=== PATIENT | female | born 1980 | race Caucasian/White ===

== ENCOUNTER 2016-09-27 12:55 | Emergency (ER) | payer SELFPAY ==
[~2016-09-27] VITALS: Ht 157.5 cm; Wt 75.0 kg
[~2016-09-27 12:55] MED LIST: BUSP15TA PO; FLUO40CA PO; PROZ40CA PO
[2016-09-27 12:59] VITALS: BP 119/80; PULSE 78; RESP 16; TEMP 97.7; O2SAT 99
--- NOTE | 2016-09-27 13:34 | PD ---
HPI Chief Complaint: Cold / Flu Symptoms Time Seen by Provider: 13:17 Travel History International Travel<30 days: No Contact w/Intl Traveler<30days: No Traveled to known affect area: No History of Present Illness HPI Patient is a 36-year-old female who comes in complaining of multiple symptoms. She says she's been feeling sick on and off for the past 2 weeks. She says she' s had nausea on and off, mostly in the morning. She reports vomiting this morning. She has drunk water since then without a problem. She says she's had occasional diarrhea. She says the past few days she also started to have runny nose and cough. She says she's felt feverish, but has not taken her temperature. She says her boyfriend is concerned she may be . She says she also came in because she's had to miss work and needs evidence that she has been sick. She lives in a sober living house, and reports a multiple residents are sick with similar symptoms. She is a former IV drug abuser, and says she recently had an HIV test done that was negative. She denies any abdominal pain. PFSH Past Medical History Arthritis: No Asthma: No Autoimmune Disease: No Blood Disorders: No Bipolar Disorder: Yes Anxiety: Yes Depression: Yes Heart Rhythm Problems: No Cancer: No Cardiovascular Problems: Yes High Cholesterol: No Chemotherapy: No Chest Pain: Yes Congestive Heart Failure: No COPD: No Cerebrovascular Accident: No Diabetes: No Diminished Hearing: No Endocrine: No Gastrointestinal Disorders: Yes GERD: No Glaucoma: No Genitourinary: No Headaches: Yes Hepatitis: No Hiatal Hernia: No Heparin Induced Thrombocytopen: No Hypertension: Yes Immune Disorder: No Implanted Vascular Access Dvce: No Kidney Stones: No Musculoskeletal: No Neurologic: Yes (NEUROMAS BILAT FEET) Psychiatric: Yes Reproductive: No Respiratory: No Migraines: No Myocardial Infarction: No Radiation Therapy: No Renal Failure: No Seizures: Yes (As per patient self report) Sickle Cell Disease: No Sleep Apnea: No Thyroid Disease: No Ulcer: No ?: Not LMP: 09/07/16 : 5 Para: 2 Miscarriage: 2 : 1 Ectopic : Yes Past Surgical History Abdominal Surgery: No AICD: No Appendectomy: No Arteriovenous Shunt: No Cardiac Surgery: No Section: Yes (X1) Cholecystectomy: No Ear Surgery: No Endocrine Surgery: No Eye Surgery: No Genitourinary Surgery: No Gynecologic Surgery: Yes (CEASARIAN X1) Insulin Pump: No Joint Replacement: No Oral Surgery: Yes Pacemaker: No Thoracic Surgery: No Other Surgery: Yes Social History Tobacco Use: Yes (1/2 PACK/DAY) Substance Use: Yes Allergies-Medications (Allergen,Severity, Reaction): Coded Allergies: Penicillin (Verified Allergy, Severe, HIVES, 09/27/16) Tylox (Verified Adverse Reaction, Severe, HALLUCINATIONS, 09/27/16) Uncoded Allergies: NO NARCOTICS (Adverse Reaction, Unknown, 09/27/16) IN RECOVERY Reported Meds & Prescriptions Reported Meds & Active Scripts Active Review of Systems General / Constitutional: Positive: Fever, No: Chills HENT: No: Headaches, Lightheadedness Cardiovascular: No: Chest Pain or Discomfort Respiratory: Positive: Cough, No: Shortness of Breath Gastrointestinal: Positive: Nausea, Vomiting, Diarrhea, No: Abdominal Pain Genitourinary: No: Dysuria Skin: No Rash, No Change in Pigmentation Neurologic: No: Weakness, Dizziness Physical Exam Narrative GENERAL: Awake and alert, in no acute distress. SKIN: Warm and dry. HEAD: Atraumatic. Normocephalic. EYES: Pupils equal and round. No scleral icterus. ENT: Mucous membranes pink and moist. No pharyngeal erythema, no tonsillar swelling or exudates. CARDIOVASCULAR: Regular rate and rhythm. No murmur appreciated. RESPIRATORY: No accessory muscle use. Clear to auscultation. Breath sounds equal bilaterally. GASTROINTESTINAL: Abdomen soft, non-tender, nondistended. Hepatic and splenic margins not palpable. MUSCULOSKELETAL: No obvious deformities. No clubbing. No cyanosis. No edema. Data Data Last Documented VS Vital Signs Date Time Temp Pulse Resp B/P Pulse Ox O2 Delivery O2 Flow Rate FiO2 09/27/16 12:59 97.7 78 16 119/80 99 Orders Ed Urine Pregnancytest Poc (09/27/16 13:27) MDM Medical Decision Making Medical Screen Exam Complete: Yes Emergency Medical Condition: Yes Medical Record Reviewed: Yes Differential Diagnosis URI versus viral illness versus pneumonia versus bronchitis Narrative Course Patient is a 36-year-old female who comes in with multiple medical complaints. Exam shows no acute abnormalities. Patient offered chest x-ray, however she declines at this time. Offered medications, however she says she is feeling okay, just run down. She says she needs a note for work so she can get some rest. Urine test performed, is negative. Patient advised to continue to use Tylenol or ibuprofen as needed. Advised to drink plenty of fluids. Advised to return to the ED as needed for any worsening symptoms. Diagnosis Primary Impression: Viral illness Patient Instructions: General Instructions, Viral Syndrome (ED) Additional Instructions: Drink plenty of fluids. Take Tylenol or Ibuprofen as needed for pain or fever. Return to the ED as needed for any worsening symptoms. Disposition: 01 DISCHARGE HOME Condition: Stable Yael Alarcon MD Sep 27, 2016 13:33
== END 2016-09-27 13:48 | disposition home or self-care (01) ==
LOC: PHED 12:55
DX: B34.9 Viral infection, unspecified (principal); R05 Cough; R19.7 Diarrhea, unspecified; I10 Essential (primary) hypertension; F17.210 Nicotine dependence, cigarettes, uncomplicated
CPT/HCPCS: 84703; 99283

== ENCOUNTER 2016-11-12 22:32 | Inpatient (IN) | payer SELFPAY ==
[~2016-11-12] VITALS: Ht 157.5 cm; Wt 75.0 kg
[~2016-11-12 22:32] MED LIST changes: -BUSP15TA PO; -FLUO40CA PO
[2016-11-12] MEDS ORDERED: SODIUM CHLOR 0.9% 1000 ML INJ 1,000 ML IV ONE (22:37)
[2016-11-12 22:38] VITALS: BP 216/139; PULSE 90; RESP 38; TEMP 98.5; O2SAT 91
[2016-11-12] MEDS ORDERED: SODIUM CHLORIDE 0.9% FLUSH 10 ML FLUSH IVF PRN (22:45)
[2016-11-12] MEDS ORDERED: LORazepam 2 MG/ML VIAL IV ONE (22:45)
--- NOTE | 2016-11-12 22:49 | PD ---
HPI Chief Complaint: Alcohol/Drug Intoxication Time Seen by Provider: 22:37 Travel History International Travel<30 days: No Contact w/Intl Traveler<30days: No Traveled to known affect area: No History of Present Illness HPI 36-year-old female here for intoxication. Patient states that she is been using crack cocaine today and "can't shut it down". Patient apparently has been fidgeting throughout the day, not sleeping and friend was worried about her and called EMS. Patient noted to be restless, agitated area admits to using crack cocaine. Patient denies any complaints but states that she can't sleep and wants to be able to do so. Per EMS patient restless, hemodynamically stable. Patient also notes a history of bipolar disorder and has been noncompliant with meds for some time. PFSH Past Medical History Arthritis: No Asthma: No Autoimmune Disease: No Blood Disorders: No Bipolar Disorder: Yes Anxiety: Yes Depression: Yes Heart Rhythm Problems: No Cancer: No Cardiovascular Problems: Yes High Cholesterol: No Chemotherapy: No Chest Pain: Yes Congestive Heart Failure: No COPD: No Cerebrovascular Accident: No Diabetes: No Diminished Hearing: No Endocrine: No Gastrointestinal Disorders: Yes GERD: No Glaucoma: No Genitourinary: No Headaches: Yes Hepatitis: No Hiatal Hernia: No Heparin Induced Thrombocytopen: No Hypertension: Yes Immune Disorder: No Implanted Vascular Access Dvce: No Kidney Stones: No Musculoskeletal: No Neurologic: Yes (NEUROMAS BILAT FEET) Psychiatric: Yes Reproductive: No Respiratory: No Migraines: No Myocardial Infarction: No Radiation Therapy: No Renal Failure: No Seizures: Yes (As per patient self report) Sickle Cell Disease: No Sleep Apnea: No Thyroid Disease: No Ulcer: No : 5 Para: 2 Miscarriage: 2 : 1 Ectopic : Yes Past Surgical History Abdominal Surgery: No AICD: No Appendectomy: No Arteriovenous Shunt: No Cardiac Surgery: No Section: Yes (X1) Cholecystectomy: No Ear Surgery: No Endocrine Surgery: No Eye Surgery: No Genitourinary Surgery: No Gynecologic Surgery: Yes (CEASARIAN X1) Insulin Pump: No Joint Replacement: No Oral Surgery: Yes Pacemaker: No Thoracic Surgery: No Other Surgery: Yes Social History Tobacco Use: Yes (1/2 PACK/DAY) Substance Use: Yes Allergies-Medications (Allergen,Severity, Reaction): Coded Allergies: Penicillin (Verified Allergy, Severe, HIVES, 4/1/17) Tylox (Verified Adverse Reaction, Severe, HALLUCINATIONS, 11/12/16) Uncoded Allergies: NO NARCOTICS (Adverse Reaction, Unknown, 09/27/16) IN RECOVERY Reported Meds & Prescriptions Reported Meds & Active Scripts Active Review of Systems ROS Limitations: Intoxication, Poor Historian Except as stated in HPI: all other systems reviewed are Neg Physical Exam Exam Limitations: Intoxication, Poor Historian Narrative GENERAL: Disheveled adult female restless, fidgeting and slightly agitated SKIN: Various excoriations HEAD: Normocephalic. EYES: Pupils equal and round. 5 mm. No scleral icterus. No injection or drainage. ENT: No nasal bleeding or discharge. Mucous membranes pink and moist. NECK: Supple CARDIOVASCULAR: Regular rate and rhythm. No murmur appreciated. RESPIRATORY: No accessory muscle use. Clear to auscultation. Breath sounds equal bilaterally. GASTROINTESTINAL: Abdomen soft, non-tender, nondistended. MUSCULOSKELETAL: Moves all extremities equally and strong NEUROLOGICAL: Awake and alert. Restless, fidgeting and slightly agitated. No obvious cranial nerve deficits. Motor grossly within normal limits. Speech is slightly pressured. No clonus or rigidity PSYCHIATRIC: Poor insight and judgment Data Data Last Documented VS Vital Signs Date Time Temp Pulse Resp B/P Pulse Ox O2 Delivery O2 Flow Rate FiO2 11/13/16 00:07 108 16 140/60 100 Nasal Cannula 2 11/12/16 22:38 98.5 Orders Electrocardiogram (11/12/16 22:37) Basic Metabolic Panel (Bmp) (11/12/16 22:37) Complete Blood Count With Diff (11/12/16 22:37) Iv Access Insert/Monitor (11/12/16 22:37) Ecg Monitoring (11/12/16 22:37) Oximetry (11/12/16 22:37) Lorazepam Inj (Ativan Inj) (11/12/16 22:45) Sodium Chloride 0.9% Flush (Ns Flush) (11/12/16 22:45) Sodium Chlor 0.9% 1000 Ml Inj (Ns 1000 M (11/12/16 22:37) Alcohol (Ethanol) (11/12/16 22:37) Creatine Kinase (Cpk) (11/12/16 22:37) Lorazepam Inj (Ativan Inj) (11/12/16 23:30) CKMB (11/12/16 22:50) CKMB% (11/12/16 22:50) Sodium Chlor 0.9% 1000 Ml Inj (Ns 1000 M (11/13/16 00:00) Labs Laboratory Tests Test 11/12/16 22:50 White Blood Count 14.8 TH/MM3 Red Blood Count 4.62 MIL/MM3 Hemoglobin 13.7 GM/DL Hematocrit 41.6 % Mean Corpuscular Volume 90.0 FL Mean Corpuscular Hemoglobin 29.5 PG Mean Corpuscular Hemoglobin 32.8 % Concent Red Cell Distribution Width 13.2 % Platelet Count 309 TH/MM3 Mean Platelet Volume 7.8 FL Neutrophils (%) (Auto) 86.2 % Lymphocytes (%) (Auto) 6.5 % Monocytes (%) (Auto) 7.0 % Eosinophils (%) (Auto) 0.2 % Basophils (%) (Auto) 0.1 % Neutrophils # (Auto) 12.8 TH/MM3 Lymphocytes # (Auto) 1.0 TH/MM3 Monocytes # (Auto) 1.0 TH/MM3 Eosinophils # (Auto) 0.0 TH/MM3 Basophils # (Auto) 0.0 TH/MM3 CBC Comment DIFF FINAL Differential Comment Sodium Level 136 MEQ/L Potassium Level 4.1 MEQ/L Chloride Level 100 MEQ/L Carbon Dioxide Level 23.8 MEQ/L Blood Urea Nitrogen 14 MG/DL Creatinine 1.10 MG/DL Random Glucose 91 MG/DL Calcium Level 9.0 MG/DL Anion Gap 12 MEQ/L Estimat Glomerular Filtration 56 ML/MIN Rate Total Creatine Kinase GREATER THAN 20076 U/L Creatine Kinase MB 298.0 NG/ML Creatine Kinase MB % 0.0 % Ethyl Alcohol Level LESS THAN 3 MG/DL [facility] Medical Decision Making Medical Screen Exam Complete: Yes Emergency Medical Condition: Yes Medical Record Reviewed: Yes Differential Diagnosis 36-year-old female here for crack cocaine abuse. Patient's exam is consistent with stimulant, sympathomimetic toxidrome consistent with her stated crack cocaine use. Patient clinically intoxicated at this time and symptomatic from same. Differential includes electrolyte abnormality, rhabdomyolysis, alcohol intoxication. Narrative Course Patient placed on monitor, IV established and blood obtained. Given 2 mg Ativan IV, 1 L normal saline bolus. Patient really had little improvement in her agitation was given a repeat dose of 2 mg Ativan for a total of 4 mg with improvement of her agitation. Twelve-lead EKG showed sinus tachycardia, rate [address] abnormalities, normal intervals. QRS 72, QTC 401. CBC, BMP, blood alcohol level, CPK notable for WBC 14.8 likely stressed margination. CPK greater than 14,000. Patient was given second liter normal saline bolus and will be admitted for rhabdomyolysis. Critical Care Narrative Aggregate critical care time was 40 minutes. Time to perform other separately billable procedures was not included in the critical care time. My time did not include minutes spent treating any other patients simultaneously or on activities that did not directly contribute to the patient's treatment. The services I provided to this patient were to treat and/or prevent clinically significant deterioration that could result in: Agitation, excited delirium, renal dysfunction/failure I provided critical care services requiring my management, as noted below: Chart data review, documentation time, medication orders and management, vital sign assessments/reviewing monitor data, ordering and reviewing lab tests, ordering and interpreting/reviewing x-rays and diagnostic studies, care of the patient and discussion of the patient with the admitting physicians. Diagnosis Primary Impression: Rhabdomyolysis Qualified Code: M62.82 - Non-traumatic rhabdomyolysis Additional Impressions: Crack cocaine overdose Qualified Code: T40.5X1A - Crack cocaine overdose, accidental or unintentional , initial encounter Overdose of sympathomimetic agent Qualified Code: T44.901A - Overdose of sympathomimetic agent, accidental or unintentional, initial encounter Admitting Information Admitting Physician Requests: Admit Lisette Means MD Nov 12, 2016 22:49
[2016-11-12 22:54] VITALS: O2SAT 95
[2016-11-12 23:00] LABS: AUTOMATED NEUTROPHIL # 12.8 TH/MM3 (1.8-7.7); BASOPHIL % 0.1 % (0.0-2.0); EOSINOPHIL % 0.2 % (0.0-4.0); HEMATOCRIT 41.6 % (35.0-46.0); HEMO FLAGS DIFF FINAL; LYMPH % 6.5 % (9.0-44.0); MEAN CORPUSCULAR HEMOGLOBIN 29.5 PG (27.0-34.0); MEAN CORPUSCULAR HGB CONC 32.8 % (32.0-36.0); NEUT % 86.2 % (16.0-70.0); PLATELET COUNT 309 TH/MM3 (150-450); RED BLOOD COUNT 4.62 MIL/MM3 (4.00-5.30); RED CELL DISTRIBUTION WIDTH 13.2 % (11.6-17.2); WHITE BLOOD COUNT 14.8 TH/MM3 (4.0-11.0)
[2016-11-12 23:22] LABS: ANION GAP 12 MEQ/L (5-15); BICARBONATE 23.8 MEQ/L (21.0-32.0); BLOOD UREA NITROGEN 14 MG/DL (7-18); CHLORIDE 100 MEQ/L (98-107); GLOMERULAR FILTRATION RATE 56 ML/MIN (>89); POTASSIUM 4.1 MEQ/L (3.5-5.1); SODIUM (NA) 136 MEQ/L (136-145)
[2016-11-12] MEDS ORDERED: LORazepam 2 MG/ML VIAL IV PUSH ONE (23:30)
[2016-11-12 23:45] LABS: CREATINE KINASE GREATER THAN 14000 U/L (26-192)
[2016-11-13] VITALS (9 sets, daily range): BP systolic 90–140; BP diastolic 49–66; PULSE 72–116; RESP 16–22; TEMP 98.2–100.9; O2SAT 95–100
[2016-11-13] MEDS ORDERED: SODIUM CHLOR 0.9% 1000 ML INJ 1,000 ML IV ONE
[2016-11-13] MEDS ORDERED: ONDANSETRON HCL 4 MG/2 ML VIAL IVP PRN (00:30)
[2016-11-13] MEDS ORDERED: LORazepam 2 MG/ML VIAL IV PUSH PRN (00:30)
[2016-11-13] MEDS ORDERED: SODIUM CHLORIDE 0.9% FLUSH 10 ML FLUSH IV FLUSH PRN (00:30)
[2016-11-13] MEDS: SODIUM CHLOR 0.9% 1000 ML INJ 1,000 ML IV SCH ×4 (01:33→21:44)
--- NOTE | 2016-11-13 03:09 | HHI.HP ---
[facility] Primary Care Physician Unknown Admission Diagnosis rhabdomyolysis, crack cocaine overdose Diagnoses: (1) Crack cocaine overdose Diagnosis: Principal (2) Rhabdomyolysis Diagnosis: Principal (3) OMAR (acute kidney injury) Diagnosis: Principal (4) Leukocytosis Diagnosis: Principal Travel History International Travel<30 Days: No Contact w/Intl Traveler <30 Da: No Traveled to Known Affected Are: No History of Present Illness This is a 36-year-old female with a PMH of Anxiety, Depression, Bipolar Disorder , Tobacco Abuse and Crack Cocaine Abuse who was brought to the ER by EMS after using crack cocaine. Per report, pt had called EMS after using crack and stated she couldn't stop moving, "can't shut down". On arrival, pt significantly agitated and restless, unable to calm, s/p multiple doses of Ativan w/ eventual improvement. On arrival, BP 216/139, HR 90, O2 sat 91% on RA , Afebrile. Currently BP 102/59, HR 105 O2 sat 95% on RA. WBC 14.8. Creatinine 1.10, previously 0.5 on 06/13/14. CPK >14,000. S/p IVF in ER. Review of Systems ROS: Unable to obtain secondary to sedation from medication. Past Family Social History Past Medical History PMH: Anxiety, Depression, Bipolar Disorder, Tobacco Abuse and Crack Cocaine Abuse Past Surgical History PAST SURGICAL HISTORY: Allergies: Coded Allergies: Penicillin (Verified Allergy, Severe, HIVES, 11/12/16) Tylox (Verified Adverse Reaction, Severe, HALLUCINATIONS, 11/12/16) Uncoded Allergies: NO NARCOTICS (Adverse Reaction, Unknown, 09/27/16) IN RECOVERY Family History PAST FAMILY HISTORY: Reviewed. No h/o DM or CAD Social History PAST SOCIAL HISTORY: Negative for alcohol. Smokes 1/2-1ppd. +Crack Cocaine. Physical Exam Vital Signs Vital Signs Date Time Temp Pulse Resp B/P Pulse Ox O2 Delivery O2 Flow Rate FiO2 11/13/16 01:40 98.2 105 22 102/59 95 11/13/16 00:07 108 16 140/60 100 Nasal Cannula 2 11/12/16 22:54 95 11/12/16 22:38 98.5 90 38 216/139 91 Physical Exam PE: GENERAL: Middle-aged white female in no acute distress, now calm after medication HEENT: PERRLA, EOMI. No scleral icterus or conjunctival pallor. No lid lag or facial droop. CARDIOVASCULAR: Regular rate and rhythm. No obvious murmurs to auscultation. No chest tenderness to palpation. RESPIRATORY: No obvious rhonchi or wheezing. Clear to auscultation. Breath sounds equal bilaterally. GASTROINTESTINAL: Abdomen soft, non-tender, nondistended. BS normal. MUSCULOSKELETAL: Extremities without clubbing, cyanosis, or edema. No obvious deformities. NEUROLOGICAL: Lethargic secondary to medication, arousable. No focal neurologic deficits. Moving both upper and lower extremities spontaneously. Laboratory Laboratory Tests Test 11/12/16 22:50 White Blood Count 14.8 Red Blood Count 4.62 Hemoglobin 13.7 Hematocrit 41.6 Mean Corpuscular Volume 90.0 Mean Corpuscular Hemoglobin 29.5 Mean Corpuscular Hemoglobin 32.8 Concent Red Cell Distribution Width 13.2 Platelet Count 309 Mean Platelet Volume 7.8 Neutrophils (%) (Auto) 86.2 Lymphocytes (%) (Auto) 6.5 Monocytes (%) (Auto) 7.0 Eosinophils (%) (Auto) 0.2 Basophils (%) (Auto) 0.1 Neutrophils # (Auto) 12.8 Lymphocytes # (Auto) 1.0 Monocytes # (Auto) 1.0 Eosinophils # (Auto) 0.0 Basophils # (Auto) 0.0 CBC Comment DIFF FINAL Differential Comment Sodium Level 136 Potassium Level 4.1 Chloride Level 100 Carbon Dioxide Level 23.8 Blood Urea Nitrogen 14 Creatinine 1.10 Random Glucose 91 Calcium Level 9.0 Anion Gap 12 Estimat Glomerular Filtration 56 Rate Total Creatine Kinase GREATER THAN 21803 Creatine Kinase MB 298.0 Creatine Kinase MB % 0.0 Ethyl Alcohol Level LESS THAN 3 Result Diagram: 11/12/16224911/12/162249 Assessment and Plan Problem List: (1) Crack cocaine overdose ICD Code: T40.5X1A Status: Acute (2) Rhabdomyolysis ICD Code: M62.82 Status: Acute (3) OMAR (acute kidney injury) ICD Code: N17.9 Status: Acute (4) Leukocytosis ICD Code: D72.829 Status: Acute Assessment and Plan A/P: 1. Cocaine Overdose: called EMS after using Crack Cocaine for uncontrollable fidgeting, restlessness and agitation. Requiring multiple doses of Ativan w/ eventual improvement, currently calm. Continue w/ Ativan prn as needed. 2. Rhabdomyolysis: secondary to Cocaine Abuse. CPK >14,000, S/p 1L IVF, will continue w/ IVF @200ml/hr for aggressive hydration, check serial CPK for trend. 3. OMAR: Creatinine 1.10, previously 0.50 on 05/26/14, likely secondary to cocaine abuse and significant dehydration from Rhabdo. IVF, repeat labs in am. 4. Leukocytosis: WBC 14.8, afebrile, no signs of infection. Likely secondary to stress response from acute drug overdose. Repeat labs in am. 5. DVT Prophylaxis: SCD/Teds. 6. Social work for d/c planning as needed. 7. Case discussed for ER physician at length. Physician Certification 2 Midnight Certification Type: Admission for Inpatient Services Order for Inpatient Services The services are ordered in accordance with Medicare regulations or non- Medicare payer requirements, as applicable. In the case of services not specified as inpatient-only, they are appropriately provided as inpatient services in accordance with the 2-midnight benchmark. Estimated LOS (days): 2 days is the estimated time the patient will need to remain in the hospital, assuming treatment plan goals are met and no additional complications. Post-Hospital Plan: Not yet determined Problem Qualifiers (1) Crack cocaine overdose: Qualified Code: T40.5X1A - Crack cocaine overdose, accidental or unintentional , initial encounter (2) Rhabdomyolysis: Qualified Code: M62.82 - Non-traumatic rhabdomyolysis Va Uribe MD Nov 13, 2016 03:09
[2016-11-13 08:26] LABS: ALKALINE PHOSPHATASE 56 U/L (45-117); ALT (GPT) 234 U/L (10-53); ANION GAP 8 MEQ/L (5-15); AST (GOT) 679 U/L (15-37); BICARBONATE 24.1 MEQ/L (21.0-32.0); BLOOD UREA NITROGEN 11 MG/DL (7-18); CHLORIDE 107 MEQ/L (98-107); GLOMERULAR FILTRATION RATE 86 ML/MIN (>89); POTASSIUM 3.8 MEQ/L (3.5-5.1); SODIUM (NA) 139 MEQ/L (136-145); TOTAL BILIRUBIN ADULT 0.8 MG/DL (0.2-1.0)
[2016-11-13 08:45] LABS: AUTOMATED NEUTROPHIL # 11.1 TH/MM3 (1.8-7.7); BASOPHIL % 0.2 % (0.0-2.0); EOSINOPHIL % 0.4 % (0.0-4.0); HEMATOCRIT 35.2 % (35.0-46.0); HEMO FLAGS DIFF FINAL; LYMPH % 8.4 % (9.0-44.0); LYMPHOCYTE # 1.1 TH/MM3 (1.0-4.8); MEAN CELL VOLUME 91.4 FL (80.0-100.0); MEAN CORPUSCULAR HEMOGLOBIN 29.7 PG (27.0-34.0); MEAN CORPUSCULAR HGB CONC 32.5 % (32.0-36.0); MONO % 7.6 % (0.0-8.0); NEUT % 83.4 % (16.0-70.0); PLATELET COUNT 241 TH/MM3 (150-450); RED BLOOD COUNT 3.85 MIL/MM3 (4.00-5.30); RED CELL DISTRIBUTION WIDTH 13.6 % (11.6-17.2); WHITE BLOOD COUNT 13.3 TH/MM3 (4.0-11.0)
[2016-11-13] MEDS: SODIUM CHLORIDE 0.9% FLUSH 10 ML FLUSH IV FLUSH SCH ×2 (09:00→21:00)
--- NOTE | 2016-11-13 14:01 | HHI.PR ---
Subjective Remarks No acute events overnight. Afebrile, mildly tachycardic to 108. Patient states she's feeling much better today. She is drowsy upon exam. She has no complaints at this time. Objective Vitals Vital Signs Date Time Temp Pulse Resp B/P Pulse Ox O2 Delivery O2 Flow Rate FiO2 11/13/16 12:12 98.7 96 18 111/66 100 11/13/16 08:17 98.3 72 18 98/53 97 11/13/16 04:00 99.1 87 20 90/49 100 11/13/16 02:08 99 11/13/16 01:40 98.2 105 22 102/59 95 11/13/16 00:07 108 16 140/60 100 Nasal Cannula 2 11/12/16 22:54 95 11/12/16 22:38 98.5 90 38 216/139 91 I/O 11/12/16 11/12/16 11/12/16 11/13/16 11/13/16 11/13/16 07:00 15:00 23:00 07:00 15:00 23:00 Intake Total 583 ml Balance 583 ml Intake IV Total 583 ml Result Diagram: 11/13/16 0632 11/13/16 0632 Objective Remarks Gen.: No acute distress Head: Normocephalic. Atraumatic. EENT: Pupils equal round and reactive to light. Nose without drainage. Airway intact. Throat without injection. Cardiovascular: Regular rate and rhythm. No murmurs, rubs or gallops. Respiratory: Lungs clear to auscultation bilaterally. No wheezes or rhonchi. Abdomen: Soft, nontender, nondistended. No peritoneal signs. Musculoskeletal: No gross deformities. No edema. Skin: No obvious rashes or erythema. Neuro: Sensory and motor grossly intact. Cranial nerves II through XII grossly intact. Psych: Drowsy, tearful A/P Problem List: (1) Crack cocaine overdose ICD Code: T40.5X1A Status: Acute (2) Rhabdomyolysis ICD Code: M62.82 Status: Acute (3) OMAR (acute kidney injury) ICD Code: N17.9 Status: Acute (4) Leukocytosis ICD Code: D72.829 Status: Acute Assessment and Plan A/P: 1. Cocaine Overdose: called EMS after using Crack Cocaine for uncontrollable fidgeting, restlessness and agitation. Requiring multiple doses of Ativan w/ eventual improvement, currently calm. Continue w/ Ativan prn as needed. 2. Rhabdomyolysis: secondary to Cocaine Abuse. CPK >14,000, S/p 1L IVF, will continue w/ IVF @200ml/hr for aggressive hydration, check serial CPK for trend. 3. OMAR: Creatinine 1.10 on admission, 0.76 today, likely secondary to cocaine abuse and significant dehydration from Rhabdo. IV fluids as above. 4. Leukocytosis: WBC 13.3, afebrile, no signs of infection. Likely secondary to stress response from acute drug overdose. Repeat labs in am. 5. Transaminitis: Likely secondary to hepatitis C, trend LFTs. Patient does not have insurance but wishes to undergo treatment for her hepatitis C, will need to establish with community clinic. 6. DVT Prophylaxis: SCD/Teds. 7. Social work for d/c planning as needed. Problem Qualifiers (1) Crack cocaine overdose: Qualified Code: T40.5X1A - Crack cocaine overdose, accidental or unintentional , initial encounter (2) Rhabdomyolysis: Qualified Code: M62.82 - Non-traumatic rhabdomyolysis Fiona Ellis MD R3 Nov 13, 2016 14:01
[2016-11-13 14:57] LABS: CKMB 72.1 NG/ML (0.5-3.6)
--- NOTE | 2016-11-13 21:01 | EKG ---
Date Performed: 11/13/2016 Time Performed: 00:03:33 PTAGE: 36 years EKG: SINUS TACHYCARDIA ABNORMAL RHYTHM ECG PREVIOUS TRACING : 12/04/2007 05.12 DOCTOR: Kmi Nelson Interpretating Date/Time 11/13/2016 21:00:41
[2016-11-14] VITALS: BP 95/50; PULSE 97; RESP 20; TEMP 98.6; O2SAT 94
[2016-11-14] MEDS ORDERED: IBUPROFEN 400 MG TAB PO ONE (00:15)
[2016-11-14 04:00] VITALS: BP 94/50; PULSE 74; RESP 20; TEMP 98; O2SAT 96
[2016-11-14] MEDS: SODIUM CHLOR 0.9% 1000 ML INJ 1,000 ML IV SCH (05:32)
[2016-11-14 06:20] LABS: AUTOMATED NEUTROPHIL # 2.6 TH/MM3 (1.8-7.7); BASOPHIL % 0.3 % (0.0-2.0); EOSINOPHIL % 0.2 % (0.0-4.0); HEMATOCRIT 34.3 % (35.0-46.0); HEMO FLAGS DIFF FINAL; LYMPH % 19.2 % (9.0-44.0); LYMPHOCYTE # 0.7 TH/MM3 (1.0-4.8); MEAN CELL VOLUME 89.6 FL (80.0-100.0); MEAN CORPUSCULAR HEMOGLOBIN 30.2 PG (27.0-34.0); MEAN CORPUSCULAR HGB CONC 33.7 % (32.0-36.0); MONO % 11.7 % (0.0-8.0); NEUT % 68.6 % (16.0-70.0); PLATELET COUNT 189 TH/MM3 (150-450); RED BLOOD COUNT 3.83 MIL/MM3 (4.00-5.30); RED CELL DISTRIBUTION WIDTH 13.3 % (11.6-17.2); WHITE BLOOD COUNT 3.8 TH/MM3 (4.0-11.0)
[2016-11-14 06:58] LABS: BICARBONATE 24.2 MEQ/L (21.0-32.0); CALCIUM-PROTEIN CORRECTED 8.5 MG/DL (8.5-10.1); POTASSIUM 3.7 MEQ/L (3.5-5.1); TOTAL BILIRUBIN ADULT 0.4 MG/DL (0.2-1.0)
[2016-11-14 07:24] LABS: CKMB 6.9 NG/ML (0.5-3.6)
[2016-11-14 08:00] VITALS: BP 115/64; PULSE 72; PULSE 77; RESP 16; TEMP 97.9; O2SAT 96
[2016-11-14] MEDS: SODIUM CHLORIDE 0.9% FLUSH 10 ML FLUSH IV FLUSH SCH (09:00)
[2016-11-14] MEDS ORDERED: INFLUENZA VIRUS VACCINE (QUADRIVALENT) 0.5 ML SYR IM ONE (09:00)
[2016-11-14] MEDS ORDERED: PNEUMOCOCCAL POLYVALENT INJ 25 MCG/0.5 ML SYR IM ONE (09:00)
[2016-11-14 12:00] VITALS: BP 130/84; PULSE 82; RESP 16; TEMP 97.8; O2SAT 100
[2016-11-14] MEDS ORDERED: IBUPROFEN 400 MG TAB PO PRN (12:00)
[2016-11-14] MEDS: BISACODYL 10 MG SUPP RECTAL PRN ×2 (13:24→13:44)
--- NOTE | 2016-11-14 14:18 | RADRPT ---
EXAM DATE/TIME: 11/14/2016 13:31 [facility] COMPARISON: No previous studies available for comparison. INDICATIONS : Left distal hallux pain, no trauma. MEDICAL HISTORY : Hypertension. Smoker. SURGICAL HISTORY : None. ENCOUNTER: Initial ACUITY: 3 days PAIN SCORE: 4/10 LOCATION: Left great toe. FINDINGS: Examination of the first digit of the left foot demonstrates no evidence of fracture or dislocation. No radiopaque foreign bodies are seen. The soft tissues are intact. CONCLUSION: Unremarkable examination of left first toe. Luís June MD on November 14, 2016 at 14:15 Board Certified Radiologist. This report was verified electronically.
--- NOTE | 2016-11-14 14:22 | RADRPT ---
EXAM DATE/TIME: 11/14/2016 13:39 [facility] COMPARISON: No previous studies available for comparison. INDICATIONS : Right distal halluzx pain, no known trauma MEDICAL HISTORY : Hypertension. Smoker. SURGICAL HISTORY : None. ENCOUNTER: Initial ACUITY: 3 days PAIN SCORE: 4/10 LOCATION: Right great toe FINDINGS: Examination of the first digit of the right foot demonstrates no evidence of fracture or dislocation. No radiopaque foreign bodies are seen. The soft tissues are intact. CONCLUSION: Unremarkable examination of the right first toe. Luís June MD on November 14, 2016 at 14:20 Board Certified Radiologist. This report was verified electronically.
[2016-11-14] MEDS ORDERED: DOXY1TAB13 PO (15:09)
--- NOTE | 2016-11-14 15:11 | HHI.DCPOC ---
Discharge Care Plan Diagnosis: (1) OMAR (acute kidney injury) (2) Rhabdomyolysis (3) Crack cocaine overdose Goals to Promote Your Health * To prevent worsening of your condition and complications * To maintain your health at the optimal level Directions to Meet Your Goals Take your medications as prescribed Follow your dietary instruction Follow activity as directed Keep your appointments as scheduled Take your immunizations and boosters as scheduled If your symptoms worsen call your PCP, if no PCP go to Urgent Care Center or Emergency Room Smoking is Dangerous to Your Health. Avoid second hand smoke Call the 24-hour hour crisis hotline for domestic abuse at Tona Michaels MD Nov 14, 2016 15:11
--- NOTE | 2016-11-14 15:11 | HHI.DS ---
Discharge Summary Admission Date Nov 13, 2016 at 00:11 Discharge Date: Nov 14, 2016 Admitting Diagnosis rhabdomyolysis, crack cocaine overdose (1) Crack cocaine overdose ICD Code: T40.5X1A Diagnosis: Principal (2) Rhabdomyolysis ICD Code: M62.82 Diagnosis: Principal (3) OMAR (acute kidney injury) ICD Code: N17.9 Diagnosis: Principal (4) Leukocytosis ICD Code: D72.829 Diagnosis: Principal (5) Hepatitis C ICD Code: B19.20 Diagnosis: Principal Procedures none Brief History - From Admission This is a 36-year-old female with a PMH of Anxiety, Depression, Bipolar Disorder , Tobacco Abuse and Crack Cocaine Abuse who was brought to the ER by EMS after using crack cocaine. Per report, pt had called EMS after using crack and stated she couldn't stop moving, "can't shut down". On arrival, pt significantly agitated and restless, unable to calm, s/p multiple doses of Ativan w/ eventual improvement. On arrival, BP 216/139, HR 90, O2 sat 91% on RA , Afebrile. Currently BP 102/59, HR 105 O2 sat 95% on RA. WBC 14.8. Creatinine 1.10, previously 0.5 on 06/13/14. CPK >14,000. S/p IVF in ER. CBC/BMP: 11/14/16 0538 11/14/16 0538 Significant Findings Laboratory Tests Test 11/12/16 11/13/16 11/13/16 11/14/16 22:50 06:32 12:20 05:38 White Blood Count 14.8 TH/MM3 13.3 TH/MM3 3.8 TH/MM3 (4.0-11.0) (4.0-11.0) (4.0-11.0) Neutrophils (%) (Auto) 86.2 % 83.4 % (16.0-70.0) (16.0-70.0) Lymphocytes (%) (Auto) 6.5 % 8.4 % (9.0-44.0) (9.0-44.0) Neutrophils # (Auto) 12.8 TH/MM3 11.1 TH/MM3 (1.8-7.7) (1.8-7.7) Monocytes # (Auto) 1.0 TH/MM3 1.0 TH/MM3 (0-0.9) (0-0.9) Creatinine 1.10 MG/DL (0.50-1.00) Estimat Glomerular Filtration 56 ML/MIN (>89) 86 ML/MIN (>89) Rate Total Creatine Kinase GREATER THAN 8001 U/L 3533 U/L 20636 U/L (26-192) (26-192) (26-192) Creatine Kinase MB 298.0 NG/ML 72.1 NG/ML 6.9 NG/ML (0.5-3.6) (0.5-3.6) (0.5-3.6) Red Blood Count 3.85 MIL/MM3 3.83 MIL/MM3 (4.00-5.30) (4.00-5.30) Hemoglobin 11.5 GM/DL 11.5 GM/DL (11.6-15.3) (11.6-15.3) Random Glucose 72 MG/DL (74-106) Calcium Level 7.6 MG/DL 7.4 MG/DL (8.5-10.1) (8.5-10.1) Aspartate Amino Transf 679 U/L (15-37) 424 U/L (15-37) (AST/SGOT) Alanine Aminotransferase 234 U/L (10-53) 203 U/L (10-53) (ALT/SGPT) Total Protein 5.6 GM/DL 5.2 GM/DL (6.4-8.2) (6.4-8.2) Albumin 2.5 GM/DL 2.2 GM/DL (3.4-5.0) (3.4-5.0) Hematocrit 34.3 % (35.0-46.0) Monocytes (%) (Auto) 11.7 % (0.0-8.0) Lymphocytes # (Auto) 0.7 TH/MM3 (1.0-4.8) Chloride Level 110 MEQ/L (98-107) Imaging Last Impressions Toe X-Ray 11/14/16 0000 Signed Impressions: Service Date/Time: Monday, November 14, 2016 13:39 - CONCLUSION: Unremarkable examination of the right first toe. Luís June MD PE at Discharge Gen.: No acute distress Head: Normocephalic. Atraumatic. HEENT: Pupils equal round and reactive to light. Nose without drainage. Airway intact. Throat without injection. Cardiovascular: Regular rate and rhythm. No murmurs, rubs or gallops. Respiratory: Lungs clear to auscultation bilaterally. No wheezes or rhonchi. Abdomen: Soft, nontender, nondistended. No peritoneal signs. Musculoskeletal: No gross deformities. No edema. 1st B/L great toe with swelling of toes from trauma. no erythema or warmth. Skin:+ crusting rash on face Neuro: Sensory and motor grossly intact. Cranial nerves II through XII grossly intact. Psych: AAO X 3 Pt update on day of discharge f/u for rhado, ARF patient stated she is tolerating her food. Denied any abdominal pain, N/V. +good UOP. c/o toe pain from trauma, unsure when. when I asked about rash on face patient stated that is normal and she picks at her face a lot. otherwise no other complaints. Hospital Course Cocaine Overdose - called EMS after using Crack Cocaine for uncontrollable fidgeting, restlessness and agitation. Requiring multiple doses of Ativan w/ eventual improvement. This seemed to resolve quickly. -extensive education was given on the use of crack cocaine including leading to and patient was in denial and stated this was her first time using crack cocaine. Rhabdomyolysis - secondary to Cocaine Abuse. CPK >14,000. -patient given aggressive IVFs and CPK was trending down with quick improvement of renal function. OMAR -mild. Creatinine 1.10 on admission, likely secondary to cocaine abuse and significant dehydration from Rhabdo. -resolved quickly. Leukocytosis - WBC 13.3, afebrile, no signs of infection. Likely secondary to stress response from acute drug overdose and hemoconcentration. -resolved quickly. Transaminitis - Likely secondary to hepatitis C. chronic. -noncompliant -LFTs trending down. -poor candidate for treatment due to crack cocaine use and noncompliance. -d/w case management in finding patient resources for possible treatment and trying to obtain a PCP. B/L great toe swelling -due to trauma to toes. -no signs of infection. -xray of toes shows no fracture crusted rash on face -per patient due to picking her face. -will treat empirically for possible infection although I do not see any significant cellulitis. -treat with Doxycycline. -recommend to wash face with mild facial soap for sensitive kin with water. Pt Condition on Discharge: Stable Discharge Disposition: Discharge Home Discharge Time: > 30 minutes Discharge Instructions DIET: Follow Instructions for: As Tolerated, No Restrictions Activities you can perform: Regular-No Restrictions Follow up Referrals: PCP Follow-up New Medications: Doxycycline (Monohydrate) (Doxycycline Monohydrate) 100 Mg Tab 100 MG PO BID skin infection #20 Ref 0 TAB Continued Medications: Fluoxetine (Prozac) 40 Mg Cap 80 CAP PO DAILY #30 Ref 0 CAP Tona Michaels MD Nov 14, 2016 15:11
== END 2016-11-14 17:10 | disposition home or self-care (01) | DRG 918 ==
LOC: NEPE 22:32 → NEDA 11-13 00:11 → N04A 11-13 01:35
PROVIDERS: ADMIT Family Medicine; ATTEND Family Medicine
DX: T40.5X1A Poisoning by cocaine, accidental (unintentional), initial encounter (principal); N17.9 Acute kidney failure, unspecified; M62.82 Rhabdomyolysis; D72.829 Elevated white blood cell count, unspecified; B19.20 Unspecified viral hepatitis C without hepatic coma; E86.0 Dehydration; F14.10 Cocaine abuse, uncomplicated; I10 Essential (primary) hypertension; F17.200 Nicotine dependence, unspecified, uncomplicated; F31.9 Bipolar disorder, unspecified; Z91.14 Patient's other noncompliance with medication regimen; Y92.9 Unspecified place or not applicable
CPT/HCPCS: 73660; 80048; 80053; 80307; 82550; 82552; 84484; 85025; 93005; 96361; 96374; J2060; J7030